=== PATIENT | female | born 2000 | race Caucasian/White ===

== ENCOUNTER 2024-09-08 11:07 | Outpatient (REF) | payer OTHER, SELFPAY ==
[2024-09-08 14:07] LABS: Influenza A PCR NEGATIVE (Negative); Influenza B PCR NEGATIVE (Negative); Resp Syncy Virus RNA Qual PCR NEGATIVE (Negative); SARS COV2 PCR INHOUSE NEGATIVE (Negative)
== END 2024-09-08 11:08 | disposition home or self-care (01) ==
LOC: HO.LNP 11:07
PROVIDERS: Visit Provider Physician Assistant
DX: R06.9 Unspecified abnormalities of breathing (principal)
CPT/HCPCS: 0241U

== ENCOUNTER 2024-09-08 11:07 | Outpatient (AMB) | payer OTHER, SELFPAY ==
--- NOTE | 2024-09-08 11:36 | AM.OFFWIN_ITS ---
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 Patient Tobacco Use Status: Never used Tobacco Allergies No Known Allergies Allergy (Verified 09/08/24 11:39) Do you need a note to return to daycare/school/sports/work: Yes HPI HPI Comments History of Present Illness Details The patient is a 24-year-old female presenting with a persistent cough and wheezing. Her symptoms began approximately 10 to 11 days ago and have been fluctuating in severity. She experiences both productive and dry cough and reports episodes of fever, with the highest temperature recorded at 99.9?F. The patient does not have sinus or ear pain, shortness of breath, or sputum reaching expectoration level. Wheezing is noted, and she has a history of asthma, although she currently does not have a rescue inhaler. Allergic rhinitis is managed with daily Zyrtec, and she used NyQuil the previous night. She denies any smoking or vaping. The patient was exposed to coworkers afflicted with similar respiratory complaints, noting a potential exposure to walking pneumonia at her workplace. 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 [facility] Social History Patient Tobacco Use Status: Never used Tobacco Review of Systems Const All systems reviewed & are unremarkable except as noted in HPI and below Physical Exam Vital Signs: Last Vital Signs Temp 98.9 F 09/08/24 11:38 Pulse 92 09/08/24 11:38 BP 110/72 09/08/24 11:38 Pulse Ox 98 09/08/24 11:38 Const General: cooperative, healthy appearing, comfortable and no acute distress Orientation/consciousness: patient oriented x3 Limitations: no limitations HEENT Head: Yes normal to inspection Ears: hearing grossly normal bilaterally, external ears normal and TM's normal bilaterally General nose exam: Normal external nose present, Normal nares present and No nasal discharge present Face and sinus: Yes normal facial exam and Yes sinuses nontender Mouth: Normal oral and palatal mucosa present and moist mucous membranes Throat: Yes tonsils normal, Yes uvula midline and Yes posterior oropharynx abnormal (Erythema) Eyes General: appearance normal, both eyes and all related structures Neck Neck: Yes normal visual inspection Resp Effort & Inspection: normal respiratory effort, able to speak in complete sentences, Actively coughing, no respiratory distress, not tachypneic, no tripod positioning and no use of accessory muscles Auscultation: clear to auscultation bilaterally Cardio Rate: regular rate Rhythm: regular rhythm Heart sounds: normal S1 and S2 Skin General skin exam: no rashes or lesions noted Neuro General: patient oriented x3 Extrem General: Yes normal to inspection and Yes no clubbing, cyanosis or edema Assessment & Plan Assessment & Plan (1) Atypical pneumonia: Code(s): J18.9 - Pneumonia, unspecified organism Plan: - For suspected Mycoplasma Pneumonia: Initiate Azithromycin Z-Brock with a dosing regimen of two tablets on the first day, followed by one tablet per day for the next four days. This is due to prolonged cough and potential exposure to respiratory illness. - For Asthma: Prescribe a rescue inhaler to be used in case of wheezing or ingrid rtness of breath. - Diagnostic Testing: Administered rapid tests for influenza, COVID-19, and RSV to rule out acute viral infections. - Work and Activity: Provide a work note for absence today and tomorrow to allow the antibiotic to take effect, reducing the risk of contagion at the workplace. Advise wearing a mask upon return to work on Friday. - Follow-up: Plan to communicate test results by the end of the day. Further medical follow-up may be necessary if symptoms do not improve with the current treatment plan. Patient was informed and verbally consented to the use of an ambient scribe for clinic note documentation during this visit Orders: Orders SARS-CoV2/FLU/RSV Today J06.9 - Acute upper respiratory infection, unspecified Medications: New azithromycin For 250 mg dose pack: take 500 mg today (day 1), then 250 mg for 4 days (days 2-5) PO 6 tabs 0RF albuterol sulfate 90 mcg/actuation (Ventolin HFA) 2 puffs inhalation Q4-6H PRN 8.5 grams 0RF shortness of breath or wheezing benzonatate 200 mg PO TID PRN 14 caps 0RF cough Coding Level of Care Code New Pt Level 3 (23366) Diagnoses Atypical pneumonia J18.9
[2024-09-08 11:38] VITALS: BP 110/72; PULSE 92; TEMP 37.2; O2SAT 98
== END 2024-09-08 12:34 | disposition home or self-care (01) ==
PROVIDERS: Visit Provider Physician Assistant
DX: J18.9 Pneumonia, unspecified organism (principal)

== ENCOUNTER 2024-10-15 16:26 | Outpatient (REF) | payer OTHER, SELFPAY ==
--- NOTE | ~2024-10-15 | US_ITS ---
EXAMINATION: US ABDOMEN LIMITED CLINICAL INFORMATION: Palpable mass LEFT flank area. COMPARISON: None available. TECHNIQUE: Targeted ultrasound images were obtained by the emg technician of the area of concern as indicated by the patient in the LEFT flank. Radiologist was not in attendance. Images were later provided for interpretation. FINDINGS: No discrete mass or fluid collection identified in the area of concern indicated by the patient in the LEFT flank. Limited visualization due to bowel gas. US/US abdomen limited IMPRESSION: No discrete mass or fluid collection identified in the area of concern indicated by the patient in the LEFT flank. Limited visualization due to bowel gas. Additional imaging with CT scan should be considered for further evaluation. Electronically signed by: Arleth De León MD 10/18/2024 08:35 AM DONOVAN
== END 2024-10-15 16:27 | disposition home or self-care (01) ==
LOC: HO.US 16:26
PROVIDERS: PCP Nurse Practitioner Family; Visit Provider Nurse Practitioner Family
DX: R22.2 Localized swelling, mass and lump, trunk (principal)
CPT/HCPCS: 76705

== ENCOUNTER 2024-11-24 08:48 | Emergency (ER) | payer OTHER, SELFPAY ==
--- NOTE | ~2024-11-24 | CT_ITS ---
EXAMINATION: CT ABDOMEN AND PELVIS WITHOUT CONTRAST CLINICAL INFORMATION: Right flank pain. COMPARISON: None available. TECHNIQUE: Multidetector volumetric imaging was performed from the superior aspect of the liver through the pubic symphysis. Sagittal and coronal reformatted images were obtained on the technologist's workstation. This CT examination was performed using dose optimization techniques as appropriate, variously including the following: *Automated exposure control *Adjustment of mA and/or kV according to patient size (this includes techniques or standardized protocols for targeted exams where dose is matched to indication/reason for exam; i.e. extremities or head) *Use of iterative reconstruction technique. DLP: 809 mGy centimeter. FINDINGS: Inadequate evaluation of the intra-abdominal organs and vascular structures due to lack of IV contrast. LUNG BASES: No acute airspace disease in the included lungs. LIVER, GALLBLADDER, AND BILIARY TREE: Liver measures 15 cm. No intrahepatic biliary ductal dilatation. No pericholecystic fluid collection or gallbladder wall thickening. Common bile duct measures 2 mm. PANCREAS: No peripancreatic fluid collections. No main pancreatic ductal dilatation. SPLEEN: 10 cm. ADRENAL GLANDS: No nodular lesions. KIDNEYS AND URETERS: Right kidney: Mild hydronephrosis. Mild perinephric edema pattern. 2.5 mm calculus at the right vesicoureteral junction. Left kidney: No hydronephrosis. No nephrolithiasis. BLADDER: 2.5 mm calcification at the right vesicoureteral junction. GASTROINTESTINAL TRACT: Appendix is normal. No intestinal obstruction pattern. Nonspecific mesenteric edema pattern. No pneumatosis intestinalis. No pneumoperitoneum. No ascites. . ABDOMINAL WALL: Small tiny fat-containing umbilical hernia. LYMPH NODES: Nonspecific prominent mesenteric and retroperitoneum lymph nodes. VASCULAR: No aneurysm, abdominal aorta. PELVIC VISCERA: Inadequate evaluation. Intrauterine T-shaped contraceptive device. OSSEOUS STRUCTURES: No acute fracture or listhesis in the axial skeleton. Bony pelvis and coxofemoral joints are intact. CT/CT abdomen pelvis wo IV con IMPRESSION: 2.5 mm obstructing calculus at the right vesicoureteral junction resulting in mild hydronephrosis, right kidney. Fleischner guidelines were followed. Electronically signed by: Favian Haji MD 11/24/2024 12:56 PM [facility] [place]
[2024-11-24 09:30] VITALS: BP 121/79; PULSE 74; RESP 18; TEMP 36.2; O2SAT 97; BMI 37.2
[2024-11-24 09:55] LABS: MANUAL DIFF FLAG NO
[2024-11-24 09:57] LABS: Appearance Urine Turbid; Color Urine Dark Yellow; Glucose Urine UA Negative (Negative); Leukocyte Esterase Urine Moderate (2+) (Negative); Nitrite Urine Negative (Negative); PH 5.5 (5.0-9.0); Specific Gravity - Urine >= 1.030 (1.005-1.025); UMIC TRIGGER UACC YES; Urine Blood Large (3+) (Negative); Urine Ketones Trace mg/dL (Negative); Urine Protein 30 (1+) mg/dL (Neg-Trace)
[2024-11-24 09:58] LABS: Urine Pregnancy NEGATIVE (NEGATIVE)
[2024-11-24 09:59] LABS: UPreg QC Valid YES
[2024-11-24 10:01] LABS: Basophils Absolute Auto 0.1 X10*3/uL (0.0-0.2); Basophils Percent Auto 0.7 % (0-2); Eosinophils Absolute Auto 0.1 X10*3/uL (0.0-0.4); Eosinophils Percent Auto 1.5 % (0-4); Hematocrit 43.1 % (37.0-47.0); Imm Gran Abs Auto 0.02 X10*3/uL (0.00-0.03); Imm Gran Pct Auto 0.3 % (0.0-0.4); Lymphocytes Absolute Auto 2.3 X10*3/uL (1.2-4.9); Lymphocytes Percent Auto 30.2 % (20-40); Mean Corpuscular HGB Conc 34.8 g/dl (31.0-35.0); Mean Corpuscular Hemoglobin 29.9 pg (27.0-33.0); Mean Corpuscular Volume 85.9 fL (80.0-98.0); Monocytes Absolute Auto 0.5 X10*3/uL (0.1-1.2); Monocytes Percent Auto 6.4 % (2-11); Neutrophils Absolute Auto 4.6 x10*3/uL (2.0-8.3); Neutrophils Percent Auto 60.9 % (45-73); Platelet Count 332 X10*3/uL (160-400); Red Blood Count 5.02 X10*6/uL (4.20-5.50); Red Cell Distribution Width 12.6 % (11.0-16.0); White Blood Count 7.6 X10*3/uL (4.8-10.8)
[2024-11-24 10:08] LABS: Bacteria Urine 3+ (None Seen); Hyaline Casts Urine 0-2 /LPF (0-2); RBC Urine >20 /HPF (0-2); UACC Culture Trigger YES
[2024-11-24 10:14] LABS: Albumin Level 4.6 g/dL (3.5-5.0); Alkaline Phosphatase 65 U/L (39-117); Anion Gap 10 (12-20); Aspartate Amino Transferase 32 U/L (5-31); Bilirubin Direct 0.3 mg/dL (0.0-0.5); Blood Urea Nitrogen 9 mg/dL (9-16); Calcium 9.1 mg/dL (8.4-10.2); Carbon Dioxide 26 mmol/L (22-29); Chloride 107 mmol/L (96-108); Creatinine Clr Calc Pharmacy 130.1; Estimated Glomerular Filt Rate > 60; Glucose Random 102 mg/dL (60-115); Lipase 33 U/L (8-78); Potassium 4.1 mmol/L (3.3-5.1); Sodium 139 mmol/L (135-145); Total Protein 7.8 g/dL (6.5-8.0)
[2024-11-24 10:25] LABS: Alanine Aminotransferase 31 U/L (0-31)
--- OUTSIDE RECORDS SUMMARY | 2024-11-24 10:32 | XMS_ITS | Continuity of Care Document ---
Author Organization [facility] Address [address] [place] [address]- Care Team Providers Care Manager Of Learning Name Role Phone Elio RUBIN, Christel Subramanian Primary Care Physician Encounter [facility] Date(s): 11/16/24 - 11/23/24 [facility] [address] [place] [address]- Encounter Diagnosis Abdominal bloating(Discharge Diagnosis) - 11/16/24 Alternating constipation and diarrhea(Discharge Diagnosis) - 11/16/24 Mass of soft tissue of abdomen(Discharge Diagnosis) - 11/16/24 Attending Physician: Christel Ballard NP Encounter Type: Office Visit Allergies, Adverse Reactions, Alerts No Known Allergies Immunizations Given and Recorded Vaccine Date Status Refusal Reason influenza virus vaccine, inactivated 08/28/24 Delano rded influenza virus vaccine, inactivated 08/02/23 Delano rded SARS-CoV-2(COVID-19)mRNA-LNP vac([id number]) 08/28/24 Recorded SARS-CoV-2(COVID-19)mRNA-LNP vac([id number]) 08/02/23 Recorded Medications Fluoxetine = 40 mg, By Mouth, 0 Refills, Maintenance, 03/11/24 10:37:00 AM EDT, Partial fill upon patient request if the prescription is for a schedule II opioid drug. Start Date: 03/11/24 Status: Ordered Repeat number: 1 hydrOXYzine hydrochloride 10 mg oral tablet 1 tablet = 10 mg, By Mouth, 3 times a day, PRN for anxiety, # 60 tablet, 0 Refills, Maintenance, 10/01/24 4:41:00 PM EST, Tablet, Partial fill upon patient request if the prescription is for a schedule II opioid drug. Start Date: 10/01/24 Status: Ordered Quantity: 60.0 Unit: tablet Repeat number: 1 levonorgestrel 52 mg intrauterine device See Instructions, For delivery to [facility] (IVF suite in [place]) on 04/06 for insertion at 1:30pm, # 1 each, 0 Refills, Maintenance, 03/18/24 11:53:00 PM EDT, [facility], Partial fill upon patient request if the prescription is for a schedule II opioid drug. Start Date: 03/18/24 Status: Ordered Quantity: 1.0 Unit: each Repeat number: 1 propranolol 20 mg oral tablet 20 mg, 1, tablet, By Mouth, 2 times a day, # 60 tablet, Refills 5, Maintenance, 03/11/24 10:38:00 AMEDT, Partial fill upon patient request if the prescription is for a schedule II opioid drug. Start Date: 03/11/24 Status: Ordered Quantity: 60.0 Unit: tablet Repeat number: 1 Readi-Cat 2 Smoothie Creamy Vanilla 2% oral suspension See Instructions, use as directed by radiology, # 2 each, 0 Refills, Maintenance, 11/21/24 1:26:00 PMEST, [facility], Partial fill upon patient request if the prescription is for a schedule II opioid drug., use as directed by radiology, 159.5, cm, 11/16/24 12:51:00 EST, Height Start Date: 11/21/24 Status: Ordered Quantity: 2.0 Unit: each Repeat number: 1 ZyrTEC 10 mg oral tablet 1 tablet = 10 mg, By Mouth, Daily, # 30 tablet, 0 Refills, Maintenance, 03/11/24 10:35:00 AM EDT, Tablet, Partial fill upon patient request if the prescription is for a schedule II opioid drug. Start Date: 03/11/24 Status: Ordered Quantity: 30.0 Unit: tablet Repeat number: 1 Problem List Condition Confirmation Course Effective Dates Status Health St atus Informant Amenorrhea Confirmed Active Generalized anxiety disorder Confirmed Active IUD (intrauterine device) in place Confirmed Active Migraines Confirmed Active Pituitary adenoma Confirmed Active Major depressive disorder, recurrent, in partial remission Confirmed Active Seasonal allergies Confirmed Active Severe obesity (BMI 35.0-39.9) with comorbidity Confirmed Active Diagnosis Diagnosis Type Effective Dates Health Status Clinical Service Informant Abdominal bloating Discharge Diagnosis 11/16/24 Alternating constipation and diarrhea Discharge Diagnosis 11/16/24 Mass of soft tissue of abdomen Discharge Diagnosis 11/16/24 Vital Signs Most recent to oldest [Reference Range]: 1 Height 159.5 cm (11/16/24 12:51 PM) Weight 99.9 kg (11/16/24 12:51 PM) Oxygen Saturation [94-100 %] 100 % (11/16/24 12:51 PM) Pulse Rate [55-90 bpm] 75 bpm (11/16/24 12:51 PM) Body Mass Index [18.5-24.99 kg/m2] 39.27 kg/m2 *>HHI* (11/16/24 12:51 PM) Blood Pressure [90-138/55-84 mm Hg] 101/ 75mm Hg (11/16/24 12:51 PM) Mode of Delivery (Oxygen) Room air (11/16/24 12:51 PM) Blood pressure sites Arm, right (11/16/24 12:51 PM) Weight Obtained Via Standing scale (11/16/24 12:51 PM) Social History Social History Type Response Smoking Status Never (less than 100 in lifetime) entered on: 10/01/24 Sex Female Sex Representation Female (finding) Note * Matthieu Kim: PERFORM Event Display: Patient Education/Instruction Authored Date: [id number] Ambulatory Adult Visit Summary [address] [address] Name: ASHLEY SRINIVASAN : 2000?? Visit: 11/16/2024 12:50?? Ambulatory Visit Instructions ?? Your Care Team Primary Care Provider Christel Ballard NP? This Visit Provider Christel Ballard NP Your Diagnosis Abdominal bloating Alternating constipation and diarrhea Mass of soft tissue of abdomen Vitals Signs Pulse Rate: 75 bpm Height: 159.5 cm Systolic Blood Pressure: 101 mm Hg Weight: 99.9 kg Diastolic Blood Pressure: 75 mm Hg Body Mass Index:??39.27 kg/m2??Critical Oxygen Saturation: 100 % Body surface area: 2.1 What to do next Scheduled Follow-Up Appointments Friday 8:20 AM EST ?? With: Elio RUBIN, Christel Marilynn Where: [address] [address]- Status: Pending Future Orders CT Abd/Pelvis W/ IV + Oral Contrast, Routine, Reason for Exam: Other:, Abdominal pain, acute, nonlocalized, IV and Oral Contrast, Once, *Est. 11/16/24 FSH - Routine, Once, 03/11/24 11:06:00 EDT, Order for Today, [facility], Blood?? Prolactin Level - Routine, Once, 03/11/24 11:06:00 EDT, Order for Today, [facility], Blood?? TSH Rfx on Abnormal to Free T4 - Routine, Once, 03/11/24 11:06:00 EDT, Order for Today, [facility], Blood?? Testosterone by Extraction (Testosterone, Total (female)) - Routine, Once, 03/11/24 11:07:00 EDT, Future Order, [facility], Blood?? Estradiol (Female >=16yrs) - Routine, Once, 03/11/24 11:08:00 EDT, Order for Today, [facility], Blood?? CBC - Routine, Once, 11/16/24 13:09:00 EST, Order for Today, [facility], Blood?? Comprehensive Metabolic Panel - Routine, Once, 11/16/24 13:09:00 EST, Order for Today, [facility], Blood?? Tissue Transglutaminase Ab IgA - Routine, Once, 11/16/24 13:09:00 EST, Future Order, [facility], Blood?? Medications The list below reflects the information in our records and provided by you today along with any changes made during this visit. Please continue your medications until treatment is completed or stopped by your provider. If this is different from the information you have or there are other questions,please contact the prescribing provider. What How Much When Instructions Unchanged Cetirizine (ZyrTEC 10 mg oral tablet) 1 tab(s) Oral Daily Unchanged Fluoxetine 40 Milligram Oral Unchanged HydrOXYzine (hydrOXYzine hydrochloride 10 mg oral tablet) 1 tab(s) Oral 3 times a day as needed for for anxiety Unchanged Levonorgestrel (levonorgestrel 52 mg intrauterine device) See instructions For delivery to [facility] (IVF suite in [place]) on for insertion at 1:30pm ?? Unchanged Propranolol (propranolol 20 mg oral tablet) 1 tab(s) Oral Twice a day Test Performed Below is a partial list of the tests performed during your Visit. You may have had other tests and procedures not included in this list. Please discuss all test results with your provider. CBC?-- Results Pending -- Comprehensive Metabolic Panel?-- Results Pending -- Tissue Transglutaminase Ab IgA?-- Results Pending -- US Soft Tissue Abdomen?-- Results Pending -- Medications and Immunizations Administered Medications Given During Visit No medications given during this visit.?? Allergies (NKA means No Known Allergies) NKA Common Emergency Awareness Tips IS IT A STROKE? Act FAST and Check for these signs: FACE Does the face look uneven? ARM Does one arm drift down? SPEECH Does their speech sound strange? TIME Call at any sign of stroke ?? Heart Attack Signs Chest discomfort: Most heart attacks involve discomfort in the center of the chest and lasts more than a few minutes, or goes away and comes back. It can feel like uncomfortable pressure, squeezing, fullness or pain. Discomfort in upper body: Symptoms can include pain or discomfort in one or both arms, back, neck, jaw or stomach. Shortness of breath: With or without discomfort. Other signs: Breaking out in a cold sweat, nausea, or lightheaded. Remember, MINUTES DO MATTER. If you experience any of these heart attack warning signs, call to get immediate medical attention! ?? Smoking can increase your chances of developing chronic health problems and can cause harmful effects to other family members in your house. If you smoke, you are strongly encouraged to quit. Please call [employer] [facility] at [phone] or 2-008-034[employer] ([phone]) or log in to [email or web address] for referrals to smoking cessation programs. ?? The National Suicide Prevention Hotline is available 12/05 if you or someone you know needs to find a reason to keep living. By calling 3-582-532-[employer] (0525) you'll be connected to a skilled, trained counselor at a crisis center in your area. [facility] You can view and manage your care through the patient portal or by using a health care shanel of your choosing. [employer] is a website that allows you to securely view your medical information including your hospital discharge summary, office visit summaries, medications and follow-up visits. You can also request appointments, renew medications, and request access to your medical information using a health care shanel of your choosing, or just ask a question. You can enroll at [email or web address] or register during your next office visit. [facility], in keeping with [facility] guidance, no longer requires face masks for staff, patientsor visitors in most situations. Similiar to time spent indoors at other locations, there is the chance that you were exposed to repiratory viruses during your time with us (such as flu or COVID-19). If you develop symptoms concerning for a viral respiratory infection, please seek testing (and treatment if indicated) from your medical provider or home test kit. ?? Disclaimer: The information provided is of a general nature and is intended to be used in conjunction with the recommendations and advice of your health care practitioner. Every effort has been made to ensure that the information provided is accurate and complete at the time it is provided to you however, as your needs change, or, as new information becomes available, different or additional instructions may be required. ?? If you have questions, please consult with your primary care provider or pharmacist, as appropriate. This information is not intended to serve as substitution for assessment and evaluation by a qualified health care provider. If you do not have a primary care provider, you may find a [facility] provider by calling [facility] at [phone]. Patient Care team information Care Team Personnel Name: Elio RUBIN, Christel Subramanian Position: [facility] PCO Associate Professional Member Role: PCP Address: [address] [place] [address] Telecom: Care Team Related Persons Name: CAL MATTSON Insurance Providers Guarantor name: ASHLEY MATTSON Health Plan Information #: 1 Payer: [employer] PPO Member Number: [id number] Policy Number: NA Group Number: [id number] Health Plan Information #: 2 Payer: [employer] PPO Member Number: [id number] Policy Number: NA Group Number: [id number]
--- OUTSIDE RECORDS SUMMARY | 2024-11-24 10:32 | XMS_ITS | Continuity of Care Document ---
Author Organization [facility] Address [address] [facility] [place] [address]- Care Team Providers Care Block Breaker Name Role Phone Elio RUBIN, Christel Subramanian Primary Care Physician Encounter 10/05/24 - 11/13/24 [facility] [address], [address] [place] [address]- Attending Physician: Elio RUBIN, Christel Subramanian Admitting Physician: Christel Ballard NP Referring Physician: Christel Ballard NP Encounter Type: Pre-Outpt Allergies, Adverse Reactions, Alerts No Known Allergies Immunizations Given and Recorded Vaccine Date Status Refusal Reason influenza virus vaccine, inactivated 08/28/24 Delano rded influenza virus vaccine, inactivated 08/02/23 Delano rded SARS-CoV-2(COVID-19)mRNA-LNP vac([id number]) 08/28/24 Recorded SARS-CoV-2(COVID-19)mRNA-LNP vac([id number]) 08/02/23 Recorded Medications Fluoxetine = 40 mg, [...] For delivery to [facility] (IVF suite in [place]) on 04/06 for insertion at 1:30pm, # 1 each, 0 Refills, Maintenance, 03/18/24 11:53:00 PM EDT, [facility], Partial fill upon patient request if [...] Quantity: 60.0 Unit: tablet Repeat number: 1 ZyrTEC 10 mg oral tablet 1 tablet = 10 mg, By Mouth, Daily, # 30 tablet, 0 Refills, Maintenance, 03/11/24 10:35:00 AM EDT, Tablet, Partial fill upon patient request if the prescription is for a schedule II opioid drug. Start Date: 03/11/24 Status: Ordered Quantity: 30.0 Unit: tablet Repeat number: 1 Problem List Condition Confirmation Course Effective Dates Status Health atus Informant Amenorrhea Confirmed Active Generalized anxiety disorder Confirmed Active IUD (intrauterine device) in place Confirmed Active Migraines Confirmed Active Obese class II Confirmed Active Pituitary adenoma Confirmed Active Major depressive disorder, recurrent, in partial remission Confirmed Active Seasonal allergies Confirmed Active Social History Social History Type Response Smoking Status Never (less than 100 in lifetime) entered on: 10/01/24 Sex Female Sex Representation Female (finding) Patient Care team information Care Team Personnel Name: Elio RUBIN, Christel Subramanian Position: S PCO Associate Professional Member Role: PCP Address: [address] [place] [address], [place] [address]- Telecom: Care Team Related Persons Name: CAL MATTSON Insurance Providers Guarantor name: ASHLEY SRINIVASAN Health Plan Information #: 1 Payer: [employer] PPO Member Number: [id number] Policy Number: NA Group Number: [id number] Health Plan Information #: 2 Payer: [employer] PPO Member Number: [id number] Policy Number: NA Group Number: [id number]
--- OUTSIDE RECORDS SUMMARY | 2024-11-24 10:32 | XMS_ITS | Continuity of Care Document ---
Author Organization [facility] Address [address] [place] [address]- Care Team Providers Care Castables Worker Name Role Phone Elio RUBIN, Christel Subramanian Primary Care Physician Encounter [facility] R [id number] Date(s): 09/23/24 - 10/27/24 [facility] [address] [place] [address]- Attending Physician: Zara Phillips NP Encounter Type: Pre Office Visit Allergies, Adverse Reactions, Alerts No Known Allergies Immunizations Given and Recorded Vaccine Date Status Refusal Reason influenza virus vaccine, inactivated 08/28/24 Delano rded influenza virus vaccine, inactivated 08/02/23 Delano rded SARS-CoV-2(COVID-19)mRNA-LNP vac([id number]) 08/28/24 Recorded SARS-CoV-2(COVID-19)mRNA-LNP vac([id number]) 08/02/23 Recorded Medications Fluoxetine = 40 mg, [...] For delivery to [facility] (IVF suite in [place]) on 04/06 for insertion at 1:30pm, # 1 each, 0 Refills, Maintenance, 03/18/24 11:53:00 PM EDT, [facility], Partial fill upon patient [...] Personnel Name: Elio RUBIN, Christel Subramanian Position: [facility] PCO Associate Professional Member Role: PCP Address: [address] [place] [address]- Telecom: Care Team Related Persons Name: CAL MATTSON Insurance Providers Guarantor name: ASHLEY SRINIVASAN Health Plan Information #: 1 Payer: [employer] PPO Member Number: [id number] Policy Number: NA Group Number: [id number] Health Plan Information #: 2 Payer: [employer]IT BBA PPO Member Number: [id number] Policy Number: NA Group Number: [id number]
--- OUTSIDE RECORDS SUMMARY | 2024-11-24 10:32 | XMS_ITS | Continuity of Care Document ---
Author Organization [facility] Address [address] [place] [address]- Care Team Providers Care Bacteriologist Medical Name Role Phone Elio RUBIN, Christel Subramanian Primary Care Physician Encounter [facility] Date(s): 10/06/24 - 11/05/24 [facility] [address] [place] [address]- Encounter Type: Triage Allergies, Adverse Reactions, Alerts No Known Allergies Immunizations Given and Recorded Vaccine Date Status Refusal Reason influenza virus vaccine, inactivated 08/28/24 Delano rded influenza virus vaccine, inactivated 08/02/23 Delano rded SARS-CoV-2(COVID-19)mRNA-LNP vac([id number]) 08/28/24 Recorded SARS-CoV-2(COVID-19)mRNA-LNP vac([id number]) 08/02/23 Recorded Medications Fluoxetine = 40 mg, [...] For delivery to [facility] (IVF suite in [place]) on 04/06 for insertion at 1:30pm, # 1 each, 0 Refills, Maintenance, 03/18/24 11:53:00 PM EDT, [facility], Partial fill upon patient request [...] PCO Associate Professional Member Role: PCP Address: [address] [place] [address]- Telecom: Care Team Related Persons Name: CAL MATTSON Insurance Providers Guarantor name: ASHLEY RSINIVASAN Health Plan Information #: 1 Payer: [employer] PPO Member Number: NA Policy Number: NA Group Number: NA
--- NOTE | 2024-11-24 11:35 | ED_ITS ---
HPI - Abdominal Pain General Chief Complaint: Abdominal Pain Stated Complaint: pain rad from abd to back Time Seen by Provider: 11/24/24 12:34 Source: patient Limitations: no limitations History of Present Illness ED Provider: Connie Blanchard PA-C HPI narrative: 24-year-old female presents with the abdominal pain x1 day. Pain originated in right lower flank, with radiation to the right lower abdomen. Pain fluctuates in intensity, becoming severe at times. Associated nausea, but no vomiting. Denies dysuria, hematuria, fever or history of kidney stones. Related Data Home Medications ?Medication ?Instructions ?Recorded ?Confirmed fluoxetine 40 mg capsule 40 mg PO DAILY 09/08/24 propranolol 20 mg tablet 20 mg PO BID 09/08/24 Previous Rx's ?Medication ?Instructions ?Recorded albuterol sulfate 90 mcg/actuation 2 puff inhalation Q4-6H PRN 09/08/24 aerosol inhaler (Ventolin HFA) shortness of breath or wheezing #8.5 grams azithromycin 250 mg tablet See Rx Instructions PO .COMPLEX #6 09/08/24 tabs benzonatate 200 mg capsule 200 mg PO TID PRN cough #14 caps 09/08/24 cephalexin 500 mg capsule 500 mg PO BID #13 caps 11/24/24 ketorolac 10 mg tablet 10 mg PO Q6H PRN pain #20 tabs 11/24/24 ondansetron HCl 4 mg tablet 4 mg PO Q8H PRN nausea and 11/24/24 vomiting #10 tabs tamsulosin 0.4 mg capsule (Flomax) 0.4 mg PO DAILY #6 caps 11/24/24 Allergies Allergy/AdvReac Type Severity Reaction Status Date / Time No Known Allergies Allergy Verified 11/24/24 09:32 Review of Systems Review of Systems Yes all other systems are reviewed and are negative Constitutional: Denies fatigue and Denies fever(s) Cardiovascular: Denies chest pain and Denies dyspnea Respiratory: Denies cough and Denies dyspnea Gastrointestinal: Reports abdominal pain, Reports nausea and Denies vomiting Genitourinary: Denies hematuria, Denies dysuria and Reports flank pain Endocrine: Denies fatigue PMF Past Medical History Attestation statement: The following information was validated with the patient. Social History Social History Patient Tobacco Use Status: Never used Tobacco Advance Directives: No Advance Directives Information Provided: Yes Do you have a plan to hurt others: No Plan Physical Exam ED Vital Signs: Vital Signs - 24 hr 11/24/24 09:30 11/24/24 13:53 Temperature 97.2 F 99.3 F Pulse Rate 74 75 Respiratory Rate 18 16 Blood Pressure 121/79 107/66 Pulse Oximetry 97 99 Oxygen Delivery Method Room Air Room Air BMI result Body Mass Index 37.2 Const Other: Alert Orientation/consciousness: patient oriented x3 Resp Effort & Inspection: normal respiratory effort Cardio Other: Normal peripheral perfusion GI Other: Abdomen is soft, nondistended nontender no guarding Back/Spine/Pelvis Other: No CVA tenderness Skin Other: Warm dry no rash Neuro General: patient oriented x3, gait normal, no focal motor deficits and CN's II- XI intact bilaterally Psych Other: Cooperative Course Course Course Narrative: This is a Rapid Medical Examination (RME) performed by Phong Parker PA-C in triage. Full HPI, ROS, assessment and treatment plan per primary provider in the Main ED. 24 yo female here for eval of R flank pain radiating to right lower abd x24 hours. asscoc nausea w/o vomiting. denies urinary sx. Plan: labs, UA, +/- imaging Medical Decision Making Medical Decision Making MDM Narrative: 24-year-old female presents with the abdominal pain x1 day. Pain originated in right lower flank, with radiation to the right lower abdomen. Pain fluctuates in intensity, becoming severe at times. Associated nausea, but no vomiting. Denies dysuria, hematuria, fever or history of kidney stones. No chronic issues History: Per patient I have considered the following differential diagnoses: Renal colic, biliary colic, cholecystitis, appendicitis, torsion, UTI, pyelonephritis Plan: Given right-sided symptoms I have considered the above following diagnoses. However, her symptoms are most consistent with renal colic. Screening labs including urinalysis were obtained from triage. Doubtful to be pyelonephritis, she has no CVA tenderness, she is also afebrile. Thought about torsion, however the onset of her discomfort was within the flank, has not been focal to the abdomen and pelvic region. CT scan ordered from triage. We will be giving fluids Zofran Toradol and Flomax. I have personally reviewed the following tests: Labs: No leukocytosis, not anemic, no electrolyte abnormality, urine not infected, passing hematuria and some white cells CT/CT abdomen pelvis wo IV con IMPRESSION: 2.5 mm obstructing calculus at the right vesicoureteral junction resulting in mild hydronephrosis, right kidney. Fleischner guidelines were followed. Electronically signed by: Favian Haji MD 11/24/2024 12:56 PM [facility] Lab Data 11/24/24 09:48 11/24/24 09:48 Labs: Lab Results 11/24/24 Range/Units 09:48 WBC 7.6 (4.8-10.8) X10*3/uL RBC 5.02 (4.20-5.50) X10*6/uL Hgb 15.0 (12.0-16.0) g/dl Hct 43.1 (37.0-47.0) % MCV 85.9 (80.0-98.0) fL MCH 29.9 (27.0-33.0) pg MCHC 34.8 (31.0-35.0) g/dl RDW 12.6 (11.0-16.0) % Plt Count 332 (160-400) X10*3/uL MPV 9.0 L (9.4-12.3) fL Immature Gran % (Auto) 0.3 (0.0-0.4) % Neut % (Auto) 60.9 (45-73) % Lymph % (Auto) 30.2 (20-40) % [place] % (Auto) 6.4 (2-11) % Eos % (Auto) 1.5 (0-4) % Baso % (Auto) 0.7 (0-2) % Lymph # (Auto) 2.3 (1.2-4.9) X10*3/uL [place] # (Auto) 0.5 (0.1-1.2) X10*3/uL Eos # (Auto) 0.1 (0.0-0.4) X10*3/uL Baso # (Auto) 0.1 (0.0-0.2) X10*3/uL Abs Immat Gran (auto) 0.02 (0.00-0.03) X10*3/uL Absolute Neuts (auto) 4.6 (2.0-8.3) x10*3/uL Absolute Nucleated RBC 0.000 (0.0-0.012) X10*3/uL Nucleated RBC % (auto) 0.0 (0.0-0.2) /100WBC Sodium 139 (135-145) mmol/L Potassium 4.1 (3.3-5.1) mmol/L Chloride 107 (96-108) mmol/L Carbon Dioxide 26 (22-29) mmol/L Anion Gap 10 L (12-20) BUN 9 (9-16) mg/dL Creatinine 0.76 (0.5-1.4) mg/dL Estim Creat Clear Calc 130.1 Estimated GFR > 60 Random Glucose 102 (60-115) mg/dL Calcium 9.1 (8.4-10.2) mg/dL Total Bilirubin 1.0 (0.0-1.0) mg/dL Direct Bilirubin 0.3 (0.0-0.5) mg/dL AST 32 H (5-31) U/L ALT 31 (0-31) U/L Alkaline Phosphatase 65 (39-117) U/L Total Protein 7.8 (6.5-8.0) g/dL Albumin 4.6 (3.5-5.0) g/dL Lipase 33 (8-78) U/L Urine Color Dark Yellow Urine Appearance Turbid Urine pH 5.5 (5.0-9.0) Ur Specific [place] >= 1.030 H (1.005-1.025) Urine Protein 30 (1+) H (Neg-Trace) mg/dL Urine Glucose (UA) Negative (Negative) mg/dL Urine Ketones Trace (Negative) mg/dL Urine Blood Large (3+) H (Negative) Urine Nitrite Negative (Negative) Ur Leukocyte Esterase Moderate (2+) H (Negative) Urine RBC >20 H (0-2) /HPF Urine WBC 11-20 (0-5) /HPF Ur Squamous Epith Cells 3-5 (0-2) /HPF Urine Bacteria 3+ (None Seen) Hyaline Casts 0-2 (0-2) /LPF Urine Test NEGATIVE (NEGATIVE) Medications Administered Discontinued Medications Generic Name Dose Route Start Last Admin Trade Name Freq PRN Reason Stop Dose Admin Sodium Chloride 500 mls @ 500 mls/hr 11/24/24 13:00 11/24/24 13:34 Ns IV 11/24/24 13:59 500 mls/hr .Q1H ONE Administration Ketorolac Tromethamine 15 mg 11/24/24 13:00 11/24/24 13:31 Ketorolac Tromethamine 15 Mg/Ml Vial IVPUSH 11/24/24 13:01 15 mg ONCE ONE Administration Ondansetron HCl 4 mg 11/24/24 13:00 11/24/24 13:31 Ondansetron Hcl 4 Mg/2 Ml Vial IVPUSH 11/24/24 13:01 4 mg ONCE ONE Administration Tamsulosin HCl 0.4 mg 11/24/24 13:03 11/24/24 13:31 Tamsulosin Hcl 0.4 Mg Capsule PO 11/24/24 13:04 0.4 mg ONCE ONE Administration Discharge Plan Discharge Clinical Impression: Calculus of distal right ureter Patient Disposition: Home, Self-Care Instructions: Renal Colic (ED) Additional Instructions: You are passing a 2.5 mm kidney stone, it is at the juncture were your ureter meet your bladder. It will likely pass today. Uses Zofran as needed for nausea. Use the ketorolac as needed for pain. It is questionable that your urine maybe infected, we are placing you on antibiotics. Take the cephalexin as directed. Take the Flomax as directed this will help induce urine flow. Follow up with your primary care provider as needed. Prescriptions: New cephalexin 500 mg capsule 500 mg PO BID Qty: 13 0RF ondansetron HCl 4 mg tablet 4 mg PO Q8H PRN (Reason: nausea and vomiting) Qty: 10 0RF tamsulosin [Flomax] 0.4 mg capsule 0.4 mg PO DAILY Qty: 6 0RF ketorolac 10 mg tablet 10 mg PO Q6H PRN (Reason: pain) Qty: 20 0RF Rx Instructions: maximum total duration of 5 days from all oral, intranasal, or parenteral formulations. The patient received an IV dose of Toradol here in the emergency department. No Action fluoxetine 40 mg capsule 40 mg PO DAILY propranolol 20 mg tablet 20 mg PO BID azithromycin 250 mg tablet See Rx Instructions PO .COMPLEX Qty: 6 0RF Rx Instructions: For 250 mg dose pack: take 500 mg today (day 1), then 250 mg for 4 days (days 2-5) PO benzonatate 200 mg capsule 200 mg PO TID PRN (Reason: cough) Qty: 14 0RF albuterol sulfate [Ventolin HFA] 90 mcg/actuation HFA aerosol inhaler 2 puff inhalation Q4-6H PRN (Reason: shortness of breath or wheezing) Qty: 8.5 0RF Stand Alone Forms: Work/School Release Print Language: Kazakh
[2024-11-24] MEDS: Tamsulosin HCL 0.4 MG CAPSULE PO (13:31)
[2024-11-24] MEDS: Ketorolac Tromethamine 15 MG/ML VIAL IVPUSH (13:31)
[2024-11-24] MEDS: ondansetron HCL 4 MG/2 ML VIAL IVPUSH (13:31)
[2024-11-24] MEDS: 0.9 % Sodium Chloride 500 ML IV (13:34)
[2024-11-24 13:53] VITALS: BP 107/66; PULSE 75; RESP 16; TEMP 37.4; O2SAT 99
[2024-11-24] MEDS: cephALEXin 500 MG CAPSULE PO (14:30)
[2024-11-24 14:35] VITALS: BP 107/66; PULSE 75; RESP 16; TEMP 37.4; O2SAT 99
== END 2024-11-24 14:37 | disposition home or self-care (01) ==
PROVIDERS: Emergency Provider Emergency Medicine; PCP Nurse Practitioner Family
DX: N21.0 Calculus in bladder (principal); N13.1 Hydronephrosis with ureteral stricture, not elsewhere classified; R10.9 Unspecified abdominal pain; R10.30 Lower abdominal pain, unspecified; R11.0 Nausea
CPT/HCPCS: 36415; 74176; 80048; 80076; 81001; 81025; 83690; 85025; 87086; 96361; 96374; 96375; 99284; 99285; J1885; J2405

== ENCOUNTER → 2024-11-24 11:35 | Outpatient (BNV) | payer OTHER, SELFPAY | PROVIDERS: Emergency Provider Emergency Medicine; PCP Nurse Practitioner Family; Visit Provider Radiology Diagnostic Radiology | DX: N20.1 Calculus of ureter (principal) | CPT/HCPCS: 74176 ==

== ENCOUNTER 2025-01-12 13:29 | Day surgery (SDC) | payer OTHER, SELFPAY ==
--- OUTSIDE RECORDS SUMMARY | 2024-12-31 10:40 | XMS_ITS | Continuity of Care Document ---
Author Organization [facility] Address [address] [place] [address]- Care Team Providers Care Inspector Outside Production Name Role Phone Elio RUBIN, Christel Subramanian Primary Care Physician Encounter [facility] [place] Date(s): 11/26/24 - 12/26/24 [facility] [address] [place] [address]- Encounter Type: Triage Allergies, Adverse Reactions, Alerts No Known Allergies Immunizations Given and Recorded Vaccine Date Status Refusal Reason influenza virus vaccine, inactivated 08/28/24 Delano rded influenza virus vaccine, inactivated 08/02/23 [place] rded SARS-CoV-2(COVID-19)mRNA-LNP vac([id number]) 08/28/24 Recorded SARS-CoV-2(COVID-19)mRNA-LNP vac([id number]) 08/02/23 Recorded Medications betamethasone topical dipropionate 0.05% cream 1 application, Topically, 2 times a day, for 7 days, apply thin amount to affected area, # 50 Gm, 0Refills, Acute 12/31/24 6:36:00 PM EDT, 12/24/24 6:36:00 PM EST, Cream, [id number], Partial fill upon patient request if the prescription is for a schedule II opioid drug., 1 application Topically 2 times a day,x7 days,Instr:apply thin amount to affected area, 159.5, cm, 12/24/24 18:21:00 EST,Height Start Date: 12/24/24 Stop Date: 12/31/24 Status: Ordered Quantity: 50.0 Unit: g Repeat number: 1 Indication: Rash and other nonspecific skin eruption Fluoxetine = 40 mg, By Mouth, 0 [...] For delivery to [facility] (IVF suite in [place]) on 04/06 for insertion at 1:30pm, # 1 each, 0 Refills, Maintenance, 03/18/24 11:53:00 PM EDT, [facility], Partial fill upon patient request if [...] List Condition Confirmation Course Effective Dates Status H ealth Status Informant Amenorrhea Confirmed Active Elevated anti-tissue transglutaminase (tTG) IgA level Confirmed Active Generalized anxiety disorder Confirmed Active IUD (intrauterine device) in place Confirmed Active Migraines Confirmed Active Pituitary adenoma Confirmed Active Major depressive disorder, recurrent, in partial remission Confirmed Active Seasonal allergies Confirmed Active Severe obesity (BMI 35.0-39.9) with comorbidity Confirmed Active Social History Social History Type Response Smoking Status Never (less than 100 in lifetime) entered on: 10/01/24 Sex Female Sex Representation Female (finding) Patient Care team information Care Team Personnel Name: Elio RUBIN, Christel Subramanian Position: S PCO Associate Professional Member Role: PCP Address: [address] [place] [address] Telecom: Care Team Related Persons Name: CAL MATTSON Insurance Providers Guarantor name: ASHLEY MATTSON Health Plan Information #: 1 Payer: BLUE BENEFIT BBA PPO Member Number: NA Policy Number: NA Group Number: NA
--- OUTSIDE RECORDS SUMMARY | 2024-12-31 10:40 | XMS_ITS | Continuity of Care Document ---
Author Organization [facility] Address [address] [place] [address]- Care Team Providers Care Picture Engraver Name Role Phone Elio RUBIN, Christel Subramanian Primary Care Physician [place] [facility] [place] 12/30/24 [facility] [address] [place] [address]- Encounter Type: Triage Allergies, Adverse Reactions, Alerts No Known Allergies Immunizations Given and Recorded Vaccine Date Status Refusal Reason influenza virus vaccine, inactivated 08/28/24 Delano rded influenza virus vaccine, inactivated 08/02/23 Delano rded SARS-CoV-2(COVID-19)mRNA-LNP vac([id number]) 08/28/24 Recorded SARS-CoV-2(COVID-19)mRNA-LNP vac([id number]) 08/02/23 Recorded Medications betamethasone topical dipropionate 0.05% cream 1 application, Topically, 2 times a day, for 7 days, apply thin amount to affected area, # 50 Gm, 0Refills, Acute 12/31/24 6:36:00 PM EDT, 12/24/24 6:36:00 PM EST, Cream, [id number], Partial fill upon patient request if the [...] For delivery to [facility] (IVF suite in [place]) on 04/06 for insertion at 1:30pm, # 1 each, 0 Refills, Maintenance, 03/18/24 11:53:00 PM EDT, [facility], Partial fill upon patient request if [...] PCO Associate Professional Member Role: PCP Address: [address] [place] [address] Telecom: Care Team Related Persons Name: CAL MATTSON Insurance Providers Guarantor name: ASHLEY MATTSON Health Plan Information #: 1 Payer: BLUE BENEFIT BBA PPO Member Number: NA Policy Number: NA Group Number: NA
--- OUTSIDE RECORDS SUMMARY | 2024-12-31 10:40 | XMS_ITS | Continuity of Care Document ---
Author Organization [facility] Address [address] [place] [address]- Care Team Providers Care Electrician Powerhouse Name Role Phone Elio RUBIN, Christel Subramanian Primary Care Physician Encounter [facility] [place] Date(s): 12/13/24 - 12/20/24 [facility] [address] [place] [address]- Encounter Diagnosis Right kidney mass(Discharge Diagnosis) - 12/13/24 Pituitary adenoma(Discharge Diagnosis) - 12/13/24 Severe obesity (BMI 35.0-39.9) with comorbidity(Discharge Diagnosis) - 12/13/24 Elevated anti-tissue transglutaminase (tTG) IgA level(Discharge Diagnosis) - 12/13/24 Major depressive disorder, recurrent, in partial remission(Discharge Diagnosis) - 12/13/24 Generalized anxiety disorder(Discharge Diagnosis) - 12/13/24 Attending Physician: Christel Ballard NP Encounter Type: Office Visit Allergies, Adverse Reactions, Alerts No Known Allergies Immunizations Given and Recorded Vaccine Date Status Refusal Reason influenza virus vaccine, inactivated 08/28/24 Delano rded influenza virus vaccine, inactivated 08/02/23 Delano rded SARS-CoV-2(COVID-19)mRNA-LNP vac([id number]) 08/28/24 Recorded SARS-CoV-2(COVID-19)mRNA-LNP vac([id number]) 08/02/23 Recorded Medications Fluoxetine = 40 mg, [...] For delivery to [facility] (IVF suite in [place]) on 04/06 for insertion at 1:30pm, # 1 each, 0 Refills, Maintenance, 03/18/24 11:53:00 PM EDT, [facility], Partial fill upon patient [...] each, 0 Refills, Maintenance, 11/21/24 1:26:00 [facility], [facility], Partial fill upon patient request if [...] Effective Dates Health Status Clinical Service Informant Right kidney mass Discharge Diagnosis 12/13/24 Pituitary adenoma Discharge Diagnosis 12/13/24 Severe obesity (BMI 35.0-39.9) with comorbidity Discharge Diagnosis 12/13/24 Elevated anti-tissue transglutaminase (tTG) IgA level Discharge Diagnosis 12/13/24 Major depressive disorder, recurrent, in partial remission Discharge Diagnosis 12/13/24 Generalized anxiety disorder Discharge Diagnosis 12/13/24 Vital Signs Most recent to oldest [Reference Range]: 1 Height 159.5 cm (12/13/24 8:28 AM) Oxygen Saturation [94-100 %] 99 % (12/13/24 8:28 AM) Pulse Rate [55-90 bpm] 88 bpm (12/13/24 8:28 AM) Blood Pressure [90-138/55-84 mm Hg] 110/ 73mm Hg (12/13/24 8:28 AM) Mode of Delivery (Oxygen) Room air (12/13/24 8:28 AM) Blood pressure sites Arm, right (12/13/24 8:28 AM) Social History Social History Type Response Smoking Status Never (less than 100 in lifetime) entered on: 10/01/24 Sex Female Sex Representation Female (finding) Note * Matthieu Kim: PERFORM Event Display: Patient Education/Instruction Authored Date: [id number] Ambulatory Adult Visit Summary [address] [address] Name: ASHLEY MATTSON : 2000?? Visit: 12/13/2024 08:17?? Ambulatory Visit Instructions ?? Your Care Team Primary Care Provider Elio RUBIN, Christel Subramanian? This Visit Provider Christel Ballard NP Your Diagnosis Right kidney mass Pituitary adenoma Severe obesity (BMI 35.0-39.9) with comorbidity Elevated anti-tissue transglutaminase (tTG) IgA level Major depressive disorder, recurrent, in partial remission Vitals Signs Pulse Rate: 88 bpm Height: 159.5 cm Systolic Blood Pressure: 110 mm Hg ?? Diastolic Blood Pressure: 73 mm Hg ?? Oxygen Saturation: 99 % ?? What to do next Scheduled Follow-Up Appointments Friday 10:00 AM EDT ?? With: Adrianna Simmons Where: [facility] [address] [place] [address]- Status: Pending Future Orders MRI Brain and Pituitary W+ W/O Contrast, Routine, Reason for Exam: Adenoma, No- No Pacemaker or Neurostimulator, Can Patient Stand Alone?, Once, *Est. 12/13/24 [facility] - Routine, Once, 03/11/24 11:06:00 EDT, [...] 11:08:00 EDT, Order for Today, [facility], Blood?? Medications The list below reflects the information in our records and provided by you today along with any changes made during this visit. Please continue your medications until treatment is completed or stopped by your provider. If this is different from the information you have or there are other questions,please contact the prescribing provider. What How Much When Instructions Unchanged Barium Sulfate (Readi-Cat 2 Smoothie Creamy Vanilla 2% oral suspension) See instructions use as directed by radiology ?? Unchanged Cetirizine (ZyrTEC 10 mg oral tablet) 1 tab(s) Oral Daily Unchanged Fluoxetine 40 Milligram Oral Unchanged HydrOXYzine (hydrOXYzine hydrochloride 10 mg oral tablet) 1 tab(s) Oral 3 times a day as needed for for anxiety Unchanged Levonorgestrel (levonorgestrel 52 mg intrauterine device) See instructions For delivery to [facility] (IVF suite in [place]) on for insertion at 1:30pm ?? Unchanged Propranolol (propranolol 20 mg oral tablet) 1 tab(s) Oral Twice a day Medications and Immunizations Administered Medications Given During [...] are strongly encouraged to quit. Please call [facility] Ensequence Link at [phone] or [phone] ([phone]) or log in to [email or web address] for referrals to smoking cessation programs. ?? The National Suicide Prevention Hotline is available 12/05 if you or someone you know needs to find a reason to keep living. By calling 4-886-235-[employer] (3264) you'll be connected to a skilled, trained counselor at a crisis center in your area. [facility] Ensequence Portal You can view and manage your care through the patient portal or by using a health care shanel of your choosing. [employer] is a website that allows you to securely view your medical information including your hospital discharge summary, office visit summaries, medications and follow-up visits. You can also request appointments, renew medications, and request access to your medical information using a health care shanel of your choosing, or just ask a question. You can enroll at [email or web address] or register during your next office visit. [facility], in keeping with [facility] guidance, no longer requires face masks [...] primary care provider, you may find a [facility] provider by calling [facility] Ensequence Link at [phone]. Patient Care team information Care Team Personnel Name: Elio RUBIN, Christel Subramanian Position: [facility] PCO Associate Professional Member Role: PCP Address: [address] [place] [address] Telecom: Care Team Related Persons Name: CAL MATTSON Insurance Providers Guarantor name: ASHLEY MATTSON Health Plan Information #: 1 Payer: BLUE BENEFIT BBA PPO Member Number: [id number] Policy Number: NA Group Number: [id number] Health Plan Information #: 2 Payer: [employer] Member Number: [id number] Policy Number: NA Group Number: [id number]
--- OUTSIDE RECORDS SUMMARY | 2024-12-31 10:40 | XMS_ITS | Continuity of Care Document ---
Author Organization [facility] Address [address] [place] [address]- Care Team Providers Care Consumer Safety Officer Name Role Phone Elio RUBIN, Christel Subramanian Primary Care Physician Encounter 12/20/24 - 12/27/24 [facility] [address], [address] [place] [address]- Attending Physician: Elio RUBIN, Christel Subramanian Admitting Physician: Christel Ballard NP Referring Physician: Christel Ballard NP Encounter Type: OutPatient One Time Allergies, Adverse Reactions, Alerts No Known Allergies Immunizations Given and Recorded Vaccine Date Status Refusal Reason influenza virus vaccine, inactivated 08/28/24 Delano rded influenza virus vaccine, inactivated 08/02/23 [place] rded SARS-CoV-2(COVID-19)mRNA-LNP vac([id number]) 08/28/24 Recorded SARS-CoV-2(COVID-19)mRNA-LNP vac([id number]) 08/02/23 Recorded Medications betamethasone topical dipropionate 0.05% cream 1 application, Topically, 2 times a day, for 7 days, apply thin amount to affected area, # 50 Gm, 0Refills, Acute 12/31/24 6:36:00 PM EDT, 12/24/24 6:36:00 PM EST, Cream, [id number], Partial fill upon patient request if the [...] For delivery to [facility] (IVF suite in [place]) on 04/06 for insertion at 1:30pm, # 1 each, 0 Refills, Maintenance, 03/18/24 11:53:00 PM EDT, [facility], Partial fill upon patient request if [...] obesity (BMI 35.0-39.9) with comorbidity Confirmed Active Results Radiology Reports * Exam Date Time Procedure Performing Provider Status 12/20/24 9:40 AM US Soft Tissue Abdomen Arleth Scott; Auth (Verified) Notes: (US Soft Tissue Abdomen) Reason For Exam: Palpable Mass RESULT: US Soft Tissue Abdomen US Soft Tissue Abdomen Reason: Palpable Mass COMPARISON: None. FINDINGS: High-resolution, linear array imaging of the superficial soft tissues of the left lateral abdomen was performed in the area of the patient's palpable finding. Partially encapsulated ovoid isoechoic mass within the subcutaneous fat overlying left lateral abdominal wall musculature linear with internal reflectors and no vascularity measuring 3.8 x 1.6 x 5.3 cm. No fluid collection. 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 No suspicious features. I have personally reviewed the images and I agree with this report. WSN: [id number] Ordering Physician: Christel Ballard Dictated By: Vinh Celeste DO Dictated Date/Time: 12/20/24 4:47 pm Reviewed By: Atul Gomez MD Signed By: Atul Gomez MD Signed Date/Time: 12/20/24 4:52 pm Transcribed By: EVELINA Transcribed Date/Time: 12/20/24 3:55 pm Social History Social History Type Response Smoking Status Never (less than 100 in lifetime) entered on: 10/01/24 Sex Female Sex Representation Female (finding) Patient Care team information Care Team Personnel Name: Christel Ballard NP Position: [facility] PCO Associate Professional Member Role: PCP Address: [address] [place] [id number] Telecom: Care Team Related Persons Name: CAL MATTSON Insurance Providers Guarantor name: ASHLEY MATTSON Health Plan Information #: 1 Payer: [employer]IT [employer] PPO Member Number: [id number] Policy Number: NA Group Number: [id number] Health Plan Information #: 2 Payer: [employer]IT [employer] PPO Member Number: [id number] Policy Number: NA Group Number: [id number]
--- OUTSIDE RECORDS SUMMARY | 2024-12-31 10:40 | XMS_ITS | Continuity of Care Document ---
Author Organization [facility] Address [address] [place] [address]- Care Team Providers Care Hydro Electric Station Operator Name Role Phone Elio RUBIN, Christel Subramanian Primary Care Physician Encounter [facility] Date(s): 11/19/24 - 12/19/24 [facility] [address] [place] [address]- Encounter Type: Triage Allergies, Adverse Reactions, Alerts No Known Allergies Immunizations Given and Recorded Vaccine Date Status Refusal Reason influenza virus vaccine, inactivated 08/28/24 Delano rded influenza virus vaccine, inactivated 08/02/23 [place] rded SARS-CoV-2(COVID-19)mRNA-LNP vac([id number]) 08/28/24 Recorded SARS-CoV-2(COVID-19)mRNA-LNP vac([id number]) 08/02/23 Recorded Medications Fluoxetine = 40 mg, [...] For delivery to [facility] (IVF suite in [place]) on 04/06 for insertion at 1:30pm, # 1 each, 0 Refills, Maintenance, 03/18/24 11:53:00 PM EDT, [facility], Partial fill upon patient request if [...] each, 0 Refills, Maintenance, 11/21/24 1:26:00 PME[address], [facility], Partial fill upon patient request if [...] team information Care Team Personnel Name: Elio RUBINChristel Position: [facility] PCO Associate Professional Member Role: PCP Address: [address] [place] [id number]- Telecom: Care Team Related Persons Name: CAL MATTSON Insurance Providers Guarantor name: ASHLEY MATTSON Health Plan Information #: 1 Payer: BLUE BENEFIT BBA PPO Member Number: NA Policy Number: NA Group Number: NA
--- OUTSIDE RECORDS SUMMARY | 2024-12-31 10:40 | XMS_ITS | Continuity of Care Document ---
Author Organization [facility] Address [address] [place] [address]- Care Team Providers Care Hog Cutter Name Role Phone Elio RUBIN, Christel Subramanian Primary Care Physician Encounter [facility] Date(s): 11/23/24 - 12/23/24 [facility] [address] [place] [address]- Encounter Type: Triage Allergies, Adverse Reactions, Alerts No Known Allergies Immunizations Given and Recorded Vaccine Date Status Refusal Reason influenza virus vaccine, inactivated 08/28/24 Delano rded influenza virus vaccine, inactivated 08/02/23 [place] rded SARS-CoV-2(COVID-19)mRNA-LNP vac([id number]) 08/28/24 Recorded SARS-CoV-2(COVID-19)mRNA-LNP vac([id number]) 08/02/23 Recorded Medications Fluoxetine = 40 mg, [...] For delivery to [facility] (IVF suite in [place]) on 04/06 for insertion at 1:30pm, # 1 each, 0 Refills, Maintenance, 03/18/24 11:53:00 PM EDT, [facility], Partial fill upon patient request if [...] PCO Associate Professional Member Role: PCP Address: [address] [place] [phone]- Telecom: Care Team Related Persons Name: CAL MATTSON Insurance Providers Guarantor name: ASHLEY MATTSON Health Plan Information #: 1 Payer: BLUE [employer]ENEFIT BBA PPO Member Number: NA Policy Number: NA Group Number: NA
[2025-01-12] VITALS (29 sets, daily range): BP systolic 106–124; BP diastolic 56–89; PULSE 64–91; RESP 10–20; TEMP 36.6–36.8; O2SAT 95–100; BMI 37.5
--- NOTE | ~2025-01-12 | IR_ITS ---
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 Procedures performed: 1. Ultrasound-guided catheterization of the right common femoral artery. 2. Catheterization of the right renal artery with selective angiography. 3. Catheterization of a total of nine third and fourth order branches of the right renal artery with selective angiography in each. 4. Embolization of three fourth order branches of the right renal artery supplying the angiomyolipoma. Follow-up arteriography after embolization. Physician: Jennie Turner MD Anesthesia: IV moderate sedation with intravenous fentanyl and versed was administered for 75 minutes with continuous physiologic monitoring under my direct supervision. 9 mL of 1% lidocaine was utilized for local anesthesia at the groin. Specimen: None Drain: None Estimated blood loss: Minimal Complications: None Procedure in detail: Informed and written consent was obtained and placed in the patient's chart. The patient was positioned supine on the angiography table with sterile preparation of both groins. Ultrasound of the right groin showed a patent right common femoral artery. 1% lidocaine was injected subcutaneously and extended to the artery under ultrasound guidance. A small incision was made in the skin with a #11 blade. Through the incision and under ultrasound guidance with permanent recordings and direct visualization of needle entry into the patent right common femoral artery, the right common femoral artery was catheterized in a retrograde fashion. Over a wire, SOS 2 catheter was advanced into the abdominal aorta and formed. This catheter was used to select the right renal artery where selective arteriography was performed. This showed that there were branches from the upper, mid, and lower pole renal arteries supplying the territory of the angiomyolipoma, but the angiomyolipoma itself was not well seen. We exchanged for a hockey-stick catheter, which was in turn used to select the second-order branches of the right renal artery with selective arteriography in each. From here, we used a microcatheter for superselective catheterization. In total, we interrogated a total of nine third or fourth order branches from the right renal artery with selective arteriography in each. It was difficult to visualize supplying branches to the angiomyolipoma, but from careful study of the CT, we knew where the tumor was located. We superselectively catheterized a total of three fourth order branches that were deemed to be a candidate arterial branches supplying the tumor. These were embolized to stasis using 100-300 um embospheres. In total, 3.5 mL of the beads admixed with contrast were injected to obtain hemostasis. Follow-up arteriography was performed in each branch following embolization to confirm stasis. We are careful to minimize collateral damage to the healthy kidney. Final arteriography performed through the hockey-stick catheter in the right main renal artery showed an excellent result with successful embolization of the tumor in the mid to lower pole of the right kidney. The catheter was removed from the groin and hemostasis obtained with manual pressure alone. 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 Electronically signed by: Chriss Turner MD 01/12/2025 05:21 PM EDT
[2025-01-12 14:34] LABS: UPreg QC Valid YES; Urine Pregnancy NEGATIVE (NEGATIVE)
[2025-01-12 15:13] LABS: MANUAL DIFF FLAG NO
[2025-01-12 15:15] LABS: Basophils Absolute Auto 0.1 X10*3/uL (0.0-0.2); Basophils Percent Auto 0.5 % (0-2); Eosinophils Absolute Auto 0.2 X10*3/uL (0.0-0.4); Eosinophils Percent Auto 1.4 % (0-4); Hematocrit 40.1 % (37.0-47.0); Hemoglobin 14.5 g/dl (12.0-16.0); Imm Gran Abs Auto 0.06 X10*3/uL (0.00-0.03); Imm Gran Pct Auto 0.5 % (0.0-0.4); Lymphocytes Percent Auto 23.1 % (20-40); Mean Corpuscular HGB Conc 36.2 g/dl (31.0-35.0); Mean Corpuscular Hemoglobin 30.1 pg (27.0-33.0); Mean Corpuscular Volume 83.2 fL (80.0-98.0); Monocytes Absolute Auto 0.7 X10*3/uL (0.1-1.2); Monocytes Percent Auto 5.4 % (2-11); Neutrophils Absolute Auto 9.1 x10*3/uL (2.0-8.3); Neutrophils Percent Auto 69.1 % (45-73); Platelet Count 301 X10*3/uL (160-400); Red Blood Count 4.82 X10*6/uL (4.20-5.50); Red Cell Distribution Width 12.8 % (11.0-16.0); White Blood Count 13.1 X10*3/uL (4.8-10.8)
[2025-01-12 15:20] LABS: Prothrombin Time 11.4 SEC (10.9-12.4)
[2025-01-12 15:28] LABS: Anion Gap 12 (12-20); Blood Urea Nitrogen 13 mg/dL (9-16); Carbon Dioxide 23 mmol/L (22-29); Chloride 109 mmol/L (96-108); Creatinine Clr Calc Pharmacy 150.2; Estimated Glomerular Filt Rate > 60; Glucose Random 72 mg/dL (60-115); Potassium 3.8 mmol/L (3.3-5.1); Sodium 140 mmol/L (135-145)
[2025-01-12] MEDS: Midazolam HCl 2 MG/2 ML VIAL 1 MG IVPUSH (15:42)
[2025-01-12] MEDS: fentaNYL citrate/PF 100 MCG/2 ML VIAL 50 MCG IVPUSH ×2 (15:42→16:51)
[2025-01-12] MEDS: Midazolam HCl 2 MG/2 ML VIAL 0.5 MG IVPUSH ×2 (16:17→16:38)
[2025-01-12] MEDS: fentaNYL citrate/PF 100 MCG/2 ML VIAL 25 MCG IVPUSH ×2 (16:17→16:38)
[2025-01-12] MEDS: oxyCODONE HCl Immed Release 5 MG TABLET PO (17:30)
== END 2025-01-12 18:22 | disposition home or self-care (01) ==
PROVIDERS: Radiology Diagnostic Radiology; Student in an Organized Health Care Education/Training Program; PCP Nurse Practitioner Family; Visit Provider Urology
DX: D30.01 Benign neoplasm of right kidney (principal); G43.909 Migraine, unspecified, not intractable, without status migrainosus; F32.A Depression, unspecified; F41.9 Anxiety disorder, unspecified; Z79.899 Other long term (current) drug therapy
CPT/HCPCS: 36415; 37243; 80048; 81025; 85025; 85610; 86850; 86900; 86901; 99152; 99153; C1769; C1887; J1644; J2250; J3010; Q9967

== ENCOUNTER → 2025-01-12 15:00 | Outpatient (BNV) | payer OTHER, SELFPAY | PROVIDERS: PCP Nurse Practitioner Family; Visit Provider Radiology Vascular & Interventional Radiology | DX: D17.71 Benign lipomatous neoplasm of kidney (principal) | CPT/HCPCS: 36253; 37243; 76937; 99152 ==

== ENCOUNTER 2025-06-28 09:54 | Emergency (ER) | payer OTHER, SELFPAY ==
--- NOTE | ~2025-06-28 | CT_ITS ---
CLINICAL HISTORY: r side flank pain history of angiolipoma.treated CT abdomen and pelvis without contrast Comparison: CT/OR/SR - CT ABDOMEN PELVIS WITHOUT IV CONTRAST - 11/24/24 12:27 EST Findings: No consolidation or effusion. There is a fatty mass emanating from the right kidney measuring 3.5 x 3.2 cm, series 3, image 36, Previously measuring 4.2 x 2.0. Measuring accuracy is difficult given that this is a fatty mass in his surrounding matrix of fat and margins are not well demarcated. Mass is roughly unchanged from prior. No hydronephrosis of either kidney. No retroperitoneal lymphadenopathy. No renal or ureteral stones. Spleen, adrenal glands, pancreas, gallbladder and liver unremarkable. No bowel obstruction, pneumoperitoneum, or pneumatosis. No retroperitoneal hematoma. Uterus and adnexa are unremarkable. No ascites. No acute fracture. 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 No retroperitoneal hemorrhage. This document has been electronically signed by: Ernesto May MD on 06/28/2025 19:35:38
--- NOTE | ~2025-06-28 | US_ITS ---
EXAMINATION: US KIDNEY RIGHT HISTORY: pain, hx of stones TECHNIQUE: Real-time grayscale ultrasound imaging of the right kidney was performed and images were reviewed. COMPARISON: Correlation is made with a CT of the abdomen without contrast dated 11/24/2024. FINDINGS: The right kidney measures 11.0 x 5.0 x 5.1 cm. Renal parenchymal echotexture and thickness are normal. There is a 4.0 x 3.3 x 4.1 cm echogenic mass in the interpolar region consistent with an angiomyolipoma as seen on CT. There is no hydronephrosis or renal calculi. 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 No evidence of nephrolithiasis. Electronically signed by: Xavi Porter MD 06/28/2025 12:07 PM EDT
[2025-06-28 10:24] VITALS: BP 129/58; PULSE 90; RESP 18; TEMP 36.6; O2SAT 99; BMI 36.6
--- NOTE | 2025-06-28 10:29 | ED.ABDPAIN ---
HPI - Abdominal Pain General Chief Complaint: Abdominal Pain Stated Complaint: Abd pain Time Seen by Provider: 06/28/25 16:49 Related Data Home Medications ?Medication ?Instructions ?Recorded ?Confirmed fluoxetine 40 mg capsule 40 mg PO DAILY 09/08/24 12/31/24 propranolol 20 mg tablet 20 mg PO BID 09/08/24 12/31/24 ascorbic acid (vitamin C) 1,000 mg 1 g PO BID 12/31/24 12/31/24 tablet (Vitamin C) cetirizine 10 mg tablet (Zyrtec) 10 mg PO DAILY PRN Allergic 12/31/24 12/31/24 Symptoms cetirizine 10 mg tablet (Zyrtec) 10 mg PO DAILY PRN Allergy Symptoms 12/31/24 12/31/24 cholecalciferol (vitamin D3) 50 50 mcg PO DAILY 12/31/24 12/31/24 mcg (2,000 unit) tablet (Vitamin D3) hydroxyzine HCl 10 mg PO DAILY 12/31/24 12/31/24 magnesium 200 mg tablet 200 mg PO DAILY 12/31/24 12/31/24 zinc gluconate 30 mg tablet 30 mg PO DAILY 12/31/24 12/31/24 Previous Rx's ?Medication ?Instructions ?Recorded cefuroxime axetil 500 mg tablet 500 mg PO BID #20 tabs 06/28/25 ondansetron 4 mg disintegrating 4 mg PO TID PRN nausea and 06/28/25 tablet vomiting 5 days #10 tabs Allergies Allergy/AdvReac Type Severity Reaction Status Date / Time banana Allergy Unknown Verified 06/28/25 10:26 mite-Dermatophagoides Allergy Unknown Verified 06/28/25 10:26 farmike [place] (dust mite - [place]) mold Allergy Unknown Verified 06/28/25 10:26 [facility] Past Medical History Medical History Migraine Depression Anxiety Surgical History Hx of tonsillectomy Social History Social History Patient Tobacco Use Status: Never used Tobacco Smoked in Last 30 Days: No Use of substances other than those prescribed or required for medical reasons: No Advance Directives: No Advance Directives Information Provided: No Physical Exam ED Vital Signs: Vital Signs - 24 hr 06/28/25 10:24 06/28/25 16:36 Temperature 97.9 F 97.4 F Pulse Rate 90 90 Respiratory Rate 18 18 Blood Pressure 129/58 L 109/78 Pulse Oximetry 99 99 Oxygen Delivery Method Room Air Room Air BMI result Body Mass Index 36.6 Course Course Course Narrative: This is an RME: Additional HPI, ROS, PE not included below will be deferred to primary provider. RME assessment and note performed by: Lolly Lopez PA-C This is a 24-year-old female, with a past medical history of a right renal angiomyolipoma requiring embolization in December, who presents emergency department with complaints of right flank pain which started approximately 10 days ago. Endorsing nausea, no vomiting. No urinary symptoms. Vital signs stable. She is well-appearing, appears to be under no acute distress. No right CVA tenderness on exam. Plan: Labs, UA, further ER evaluation needed. Medical Decision Making Lab Data 06/28/25 10:40 06/28/25 10:40 Labs: Lab Results 06/28/25 Range/Units 10:40 WBC 6.8 (4.8-10.8) X10*3/uL RBC 5.12 (4.20-5.50) X10*6/uL Hgb 15.3 (12.0-16.0) g/dl Hct 43.0 (37.0-47.0) % MCV 84.0 (80.0-98.0) fL MCH 29.9 (27.0-33.0) pg MCHC 35.6 H (31.0-35.0) g/dl RDW 12.7 (11.0-16.0) % Plt Count 288 (160-400) X10*3/uL MPV 8.9 L (9.4-12.3) fL Immature Gran % (Auto) 0.1 (0.0-0.4) % Neut % (Auto) 62.3 (45-73) % Lymph % (Auto) 30.5 (20-40) % Cascade % (Auto) 5.0 (2-11) % Eos % (Auto) 1.5 (0-4) % Baso % (Auto) 0.6 (0-2) % Lymph # (Auto) 2.1 (1.2-4.9) X10*3/uL Cascade # (Auto) 0.3 (0.1-1.2) X10*3/uL Eos # (Auto) 0.1 (0.0-0.4) X10*3/uL Baso # (Auto) 0.0 (0.0-0.2) X10*3/uL Abs Immat Gran (auto) 0.01 (0.00-0.03) X10*3/uL Absolute Neuts (auto) 4.2 (2.0-8.3) x10*3/uL Absolute Nucleated RBC 0.000 (0.0-0.012) X10*3/uL Nucleated RBC % (auto) 0.0 (0.0-0.2) /100WBC Sodium 141 (135-145) mmol/L Potassium 3.7 (3.3-5.1) mmol/L Chloride 109 H (96-108) mmol/L Carbon Dioxide 26 (22-29) mmol/L Anion Gap 10 L (12-20) BUN 11 (9-16) mg/dL Creatinine 0.73 (0.5-1.4) mg/dL Estim Creat Clear Calc 134.1 Estimated GFR > 60 Random Glucose 123 H (60-115) mg/dL Calcium 9.2 (8.4-10.2) mg/dL Magnesium 2.1 (1.6-2.6) mg/dL Total Bilirubin 1.1 H (0.0-1.0) mg/dL Direct Bilirubin 0.2 (0.0-0.5) mg/dL AST 29 (5-31) U/L ALT 36 H (0-31) U/L Alkaline Phosphatase 63 (39-117) U/L Total Protein 7.6 (6.5-8.0) g/dL Albumin 5.0 (3.5-5.0) g/dL Lipase 39 (8-78) U/L Beta HCG, Quant < 2 mIU/mL Urine Color Dark Yellow Urine Appearance Turbid Urine pH 7.0 (5.0-9.0) Ur Specific Dinosaur >= 1.030 H (1.005-1.025) Urine Protein 30 (1+) H (Neg-Trace) mg/dL Urine Glucose (UA) Negative (Negative) mg/dL Urine Ketones Trace (Negative) mg/dL Urine Blood Negative (Negative) Urine Nitrite Negative (Negative) Ur Leukocyte Esterase Moderate (2+) H (Negative) Urine RBC 0-2 (0-2) /HPF Urine WBC >50 H (0-5) /HPF Ur Squamous Epith Cells >20 (0-2) /HPF Urine Bacteria 4+ (None Seen) Hyaline Casts 0-2 (0-2) /LPF Medications Administered Discontinued Medications Generic Name Dose Route Start Last Admin Trade Name Freq PRN Reason Stop Dose Admin Ceftriaxone Sodium 1 gm 06/28/25 17:16 06/28/25 17:47 Ceftriaxone Sodium 1 Gm Vial IVPUSH 06/28/25 17:17 1 gm ONCE ONE Administration Discharge Plan Discharge Clinical Impression: Pyelonephritis Patient Disposition: Home, Self-Care Instructions: Kidney Infection (ED) Prescriptions: New cefuroxime axetil 500 mg tablet 500 mg PO BID Qty: 20 0RF ondansetron 4 mg tablet,disintegrating 4 mg PO TID PRN (Reason: nausea and vomiting) 5 Days Qty: 10 0RF No Action ascorbic acid (vitamin C) [Vitamin C] 1,000 mg Tablet 1 g PO BID cetirizine [Zyrtec] 10 mg Tablet 10 mg PO DAILY PRN (Reason: Allergic Symptoms) zinc gluconate 30 mg Tablet 30 mg PO DAILY magnesium 200 mg Tablet 200 mg PO DAILY cholecalciferol (vitamin D3) [Vitamin D3] 50 mcg (2,000 unit) Tablet 50 mcg PO DAILY hydroxyzine HCl 10 mg 10 mg PO DAILY cetirizine [Zyrtec] 10 mg Tablet 10 mg PO DAILY PRN (Reason: Allergy Symptoms) fluoxetine 40 mg capsule 40 mg PO DAILY propranolol 20 mg tablet 20 mg PO BID Referrals: Christel Ballard NP [Primary Care Provider, Internal Medicine] - 06/30/25 Print Language: Lao
[2025-06-28 10:49] LABS: MANUAL DIFF FLAG NO
[2025-06-28 10:52] LABS: Hematocrit 43.0 % (37.0-47.0); Hemoglobin 15.3 g/dl (12.0-16.0); Imm Gran Abs Auto 0.01 X10*3/uL (0.00-0.03); Imm Gran Pct Auto 0.1 % (0.0-0.4); Lymphocytes Absolute Auto 2.1 X10*3/uL (1.2-4.9); Mean Corpuscular HGB Conc 35.6 g/dl (31.0-35.0); Mean Corpuscular Hemoglobin 29.9 pg (27.0-33.0); Mean Corpuscular Volume 84.0 fL (80.0-98.0); NRBC Abs Auto 0.000 X10*3/uL (0.0-0.012); NRBC Pct Auto 0.0 /100WBC (0.0-0.2); Platelet Count 288 X10*3/uL (160-400); Red Blood Count 5.12 X10*6/uL (4.20-5.50); White Blood Count 6.8 X10*3/uL (4.8-10.8)
[2025-06-28 10:53] LABS: Appearance Urine Turbid; Glucose Urine UA Negative (Negative); PH 7.0 (5.0-9.0); Specific Gravity - Urine >= 1.030 (1.005-1.025); UMIC TRIGGER UACC YES
[2025-06-28 11:04] LABS: UACC Culture Trigger YES
[2025-06-28 11:08] LABS: Alanine Aminotransferase 36 U/L (0-31); Albumin Level 5.0 g/dL (3.5-5.0); Alkaline Phosphatase 63 U/L (39-117); Anion Gap 10 (12-20); Aspartate Amino Transferase 29 U/L (5-31); Blood Urea Nitrogen 11 mg/dL (9-16); Calcium 9.2 mg/dL (8.4-10.2); Carbon Dioxide 26 mmol/L (22-29); Chloride 109 mmol/L (96-108); Creatinine Clr Calc Pharmacy 134.1; Estimated Glomerular Filt Rate > 60; Lipase 39 U/L (8-78); Magnesium 2.1 mg/dL (1.6-2.6); Potassium 3.7 mmol/L (3.3-5.1); Sodium 141 mmol/L (135-145); Total Protein 7.6 g/dL (6.5-8.0)
[2025-06-28 16:36] VITALS: BP 109/78; PULSE 90; RESP 18; TEMP 36.3; O2SAT 99
--- NOTE | 2025-06-28 16:43 | PC.NURSE ---
Medical History Migraine Depression Anxiety
--- NOTE | 2025-06-28 17:08 | PC.NURSE ---
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 Presents with c/o right flank pain radiating to hher abdomen. Alert and oriented. Lungs clear bilat. Respirations even and non-labored. Abdomen soft, non-tender with positive bowel sounds. c/o right flank pain. No significant tenderness noted. Positive pedal pulses with no edema.
--- NOTE | 2025-06-28 17:11 | ED.ABDPAIN ---
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 Patient presents today with having flank pain for the last 10 days. There is no fever no chills. There is no nausea no vomiting. Patient is from home. No coughing or congestion or upper respiratory symptoms. No shortness of breath. She works here at [employer]. Patient does not think she is . Menstruation has been normal. No vomiting. No diaphoresis. Related Data Home Medications ?Medication ?Instructions ?Recorded ?Confirmed fluoxetine 40 mg capsule 40 mg PO DAILY 09/08/24 12/31/24 propranolol 20 mg tablet 20 mg PO BID 09/08/24 12/31/24 ascorbic acid (vitamin C) 1,000 mg 1 g PO BID 12/31/24 12/31/24 tablet (Vitamin C) cetirizine 10 mg tablet (Zyrtec) 10 mg PO DAILY PRN Allergic 12/31/24 12/31/24 Symptoms cetirizine 10 mg tablet (Zyrtec) 10 mg PO DAILY PRN Allergy Symptoms 12/31/24 12/31/24 cholecalciferol (vitamin D3) 50 50 mcg PO DAILY 12/31/24 12/31/24 mcg (2,000 unit) tablet (Vitamin D3) hydroxyzine HCl 10 mg PO DAILY 12/31/24 12/31/24 magnesium 200 mg tablet 200 mg PO DAILY 12/31/24 12/31/24 zinc gluconate 30 mg tablet 30 mg PO DAILY 12/31/24 12/31/24 Previous Rx's ?Medication ?Instructions ?Recorded cefuroxime axetil 500 mg tablet 500 mg PO BID #20 tabs 06/28/25 ondansetron 4 mg disintegrating 4 mg PO TID PRN nausea and 06/28/25 tablet vomiting 5 days #10 tabs Allergies Allergy/AdvReac Type Severity Reaction Status Date / Time banana Allergy Unknown Verified 06/28/25 10:26 mite-Dermatophagoides Allergy Unknown Verified 06/28/25 10:26 farinae, mike (dust mite - [place]) mold Allergy Unknown Verified 06/28/25 10:26 Review of Systems Review of Systems Positive right flank pain Yes all other systems are reviewed and are negative [facility] Past Medical History Attestation statement: The following information was validated with the patient. Medical History Migraine Depression Anxiety Surgical History Hx of tonsillectomy Social History Social History Patient Tobacco Use Status: Never used Tobacco Smoked in Last 30 Days: No Use of substances other than those prescribed or required for medical reasons: No Advance Directives: No Advance Directives Information Provided: No Physical Exam ED Exam Exam: Appearance: Alert. Oriented X3. No acute distress. Eyes: Pupils equal, round and reactive to light. ENT: Pharynx normal. Neck: Normal inspection. Neck supple. No lymph nodes noted. No crepitus CVS: Normal heart rate and rhythm. Pulses normal. Normal S1 and S2 Respiratory: No respiratory distress. Breath sounds normal. No Wheezing. No rales Abdomen: Soft and nontender. No rigidity. No distention. good BS x4 Skin: Skin warm and dry. Normal skin color. Normal skin turgor. Extremities: No lower extremity edema. Neurovascular intact to all extremities. No Lacerations. No Rash Neuro: Oriented X 3. No motor deficit. No sensory deficit. Moving all extermities. No slurred speech Vital Signs: Vital Signs - 24 hr 06/28/25 10:24 06/28/25 16:36 Temperature 97.9 F 97.4 F Pulse Rate 90 90 Respiratory Rate 18 18 Blood Pressure 129/58 L 109/78 Pulse Oximetry 99 99 Oxygen Delivery Method Room Air Room Air BMI result Body Mass Index 36.6 Medical Decision Making Medical Decision Making MDM Narrative: History of angiolipoma treated already. Presents today with having right-sided flank pain ongoing for the last 10 days. White count is normal. Ultrasound showed no evidence of hydro it showed the angiolipoma. Patient's urine however was grossly infected. She has no previous culture results here at [employer]. Appears well. IV fluid was given. We will give 1 dose of Rocephin for possible pyelonephritis Radiology's interpretation of the CT scan was grossly negative for any acute evidence of kidney stone. No obstruction. Patient likely has early pyelo. Well-appearing no distress. Patient's labs showed a normal white count. Showed a negative test. I reviewed patient's previous culture. Will start patient on cefuroxime on an outpatient basis a dose of Rocephin was given. Patient's ultrasound showed no evidence of stone. Currently in stable condition. Differential Diagnosis Differential Diagnoses: The differential diagnosis associated with the presentation includes Renal colic, UTI, pyelonephritis Admission/Observation Consideration of admission/observation: Escalation of care including admission/observation considered Lab Data MDM Lab Attestation statement: I reviewed the patient's lab results. 06/28/25 10:40 06/28/25 10:40 Labs: Lab Results 06/28/25 Range/Units 10:40 WBC 6.8 (4.8-10.8) X10*3/uL RBC 5.12 (4.20-5.50) X10*6/uL Hgb 15.3 (12.0-16.0) g/dl Hct 43.0 (37.0-47.0) % MCV 84.0 (80.0-98.0) fL MCH 29.9 (27.0-33.0) pg MCHC 35.6 H (31.0-35.0) g/dl RDW 12.7 (11.0-16.0) % Plt Count 288 (160-400) X10*3/uL MPV 8.9 L (9.4-12.3) fL Immature Gran % (Auto) 0.1 (0.0-0.4) % Neut % (Auto) 62.3 (45-73) % Lymph % (Auto) 30.5 (20-40) % [place] % (Auto) 5.0 (2-11) % Eos % (Auto) 1.5 (0-4) % Baso % (Auto) 0.6 (0-2) % Lymph # (Auto) 2.1 (1.2-4.9) X10*3/uL [place] # (Auto) 0.3 (0.1-1.2) X10*3/uL Eos # (Auto) 0.1 (0.0-0.4) X10*3/uL Baso # (Auto) 0.0 (0.0-0.2) X10*3/uL Abs Immat Gran (auto) 0.01 (0.00-0.03) X10*3/uL Absolute Neuts (auto) 4.2 (2.0-8.3) x10*3/uL Absolute Nucleated RBC 0.000 (0.0-0.012) X10*3/uL Nucleated RBC % (auto) 0.0 (0.0-0.2) /100WBC Sodium 141 (135-145) mmol/L Potassium 3.7 (3.3-5.1) mmol/L Chloride 109 H (96-108) mmol/L Carbon Dioxide 26 (22-29) mmol/L Anion Gap 10 L (12-20) BUN 11 (9-16) mg/dL Creatinine 0.73 (0.5-1.4) mg/dL Estim Creat Clear Calc 134.1 Estimated GFR > 60 Random Glucose 123 H (60-115) mg/dL Calcium 9.2 (8.4-10.2) mg/dL Magnesium 2.1 (1.6-2.6) mg/dL Total Bilirubin 1.1 H (0.0-1.0) mg/dL Direct Bilirubin 0.2 (0.0-0.5) mg/dL AST 29 (5-31) U/L ALT 36 H (0-31) U/L Alkaline Phosphatase 63 (39-117) U/L Total Protein 7.6 (6.5-8.0) g/dL Albumin 5.0 (3.5-5.0) g/dL Lipase 39 (8-78) U/L Beta HCG, Quant < 2 mIU/mL Urine Color Dark Yellow Urine Appearance Turbid Urine pH 7.0 (5.0-9.0) Ur Specific [place] >= 1.030 H (1.005-1.025) Urine Protein 30 (1+) H (Neg-Trace) mg/dL Urine Glucose (UA) Negative (Negative) mg/dL Urine Ketones Trace (Negative) mg/dL Urine Blood Negative (Negative) Urine Nitrite Negative (Negative) Ur Leukocyte Esterase Moderate (2+) H (Negative) Urine RBC 0-2 (0-2) /HPF Urine WBC >50 H (0-5) /HPF Ur Squamous Epith Cells >20 (0-2) /HPF Urine Bacteria 4+ (None Seen) Hyaline Casts 0-2 (0-2) /LPF Independent Interpretation I performed an independent interpretation of an: CT Scan (No obvious obstruction. Mass in the right kidney noted.) Radiology Impression Discussion of test interpretation with radiology: I have reviewed the radiologist's reading. External Record Review External record reviewed: Office record Medications Administered Discontinued Medications Generic Name Dose Route Start Last Admin Trade Name Freq PRN Reason Stop Dose Admin Ceftriaxone Sodium 1 gm 06/28/25 17:16 06/28/25 17:47 Ceftriaxone Sodium 1 Gm Vial IVPUSH 06/28/25 17:17 1 gm ONCE ONE Administration Discharge Plan Discharge Clinical Impression: Pyelonephritis Patient Disposition: Home, Self-Care Instructions: Kidney Infection (ED) Prescriptions: New cefuroxime axetil 500 mg tablet 500 mg PO BID Qty: 20 0RF ondansetron 4 mg tablet,disintegrating 4 mg PO TID PRN (Reason: nausea and vomiting) 5 Days Qty: 10 0RF No Action ascorbic acid (vitamin C) [Vitamin C] 1,000 mg Tablet 1 g PO BID cetirizine [Zyrtec] 10 mg Tablet 10 mg PO DAILY PRN (Reason: Allergic Symptoms) zinc gluconate 30 mg Tablet 30 mg PO DAILY magnesium 200 mg Tablet 200 mg PO DAILY cholecalciferol (vitamin D3) [Vitamin D3] 50 mcg (2,000 unit) Tablet 50 mcg PO DAILY hydroxyzine HCl 10 mg 10 mg PO DAILY cetirizine [Zyrtec] 10 mg Tablet 10 mg PO DAILY PRN (Reason: Allergy Symptoms) fluoxetine 40 mg capsule 40 mg PO DAILY propranolol 20 mg tablet 20 mg PO BID Referrals: Christel Ballard NP [Primary Care Provider, Internal Medicine] - 06/30/25 Print Language: Slovenian
--- OUTSIDE RECORDS SUMMARY | 2025-06-28 18:16 | XMS_ITS | Clinical Summary ---
Author Organization [facility] Address [address] [place] [id number] Phone Care Team Providers Care Obstetrical Nurse Name Role Phone Christel Ballard NP Primary Care Provider + Allergies No known active allergies Medications No known medications Active Problems No known active problems Social History Tobacco Use Types Packs/Day Years Used Date Smoking Tobacco: Never Assessed Education Answer Date Recorded Are you interested in more education? Not on petr e 10/23/2024 Are you concerned about learning? Not on file 10/23/2024 No 10/23/2024 No 10/23/2024 Digital Access Answer Date Recorded No 10/23/2024 No 10/23/2024 Reliable internet access at home? Not on file 10/23/2024 Device with a working camera? Not on file Comments Unknown Sex and Gender Information Value Date Recorded Sex Assigned at Not on file Legal Sex Female 2:18 PM EST Gender Identity Not on file Sexual Orientation Not on file Last Filed Vital Signs Vital Sign Reading Time Taken Comments Blood Pressure 99/69 10/23/2024 3:11 PM EST Pulse 60 10/23/2024 3:11 PM EST Temperature 36.5 C (97.7 F) 10/23/2024 3:11 PM EST Respiratory Rate 18 10/23/2024 3:11 PM EST Oxygen Saturation 100% 10/23/2024 3:11 PM EST Inhaled Oxygen Concentration - - Weight 99.8 kg (220 lb) 10/23/2024 3:11 PM EST Height 162.6 cm (5' 4 ) 10/23/2024 3:11 PM EST Body Mass Index 37.76 10/23/2024 3:11 PM EST Plan of Treatment Health Maintenance Due Date Last Done Comments Adult Td,Tdap Booster 2000 DEPRESSION SCREENING 2012 SMOKING Hx and SMOKELESS TOB ACCO SCREENING 2013 HPV VACCINES (1 - 3-dose series) 2015 CHLAMYDIA SCREENING 2016 HEPATITIS C SCREENING 2018 HIV ONE-TIME SCREENING (18-6 5 YEARS) 2018 PAP SMEAR 2021 INFLUENZA VACCINE (#1) 2025 COVID-19 VACCINE (2023-2 5 season) 2025 HEPATITIS A VACCINES Aged Out No long er eligible based on patient's age to complete this topic HIB VACCINES Aged Out No longer eligi ble based on patient's age to complete this topic MENINGOCOCCAL VACCINES (ACWY) Aged Out No longer eligible based on patient's age to complete this topic MENINGOCOCCAL VACCINES (B) Aged Out N o longer eligible based on patient's age to complete this topic PNEUMOCOCCAL VACCINES (0-49 years) Aged Out No longer eligible based on patient's age to complete this topic Medical Devices Not on file Insurance [place] [employer] [place] [employer] B[employer] [facility] [employer] Care Teams Obstetrical Nurse Relationship Specialty Start Date End Date Christel Ballard NP PCP - General Nurse Practitioner 10/23/24 Additional Source Comments The information contained in this document represents components of the legal health record. It is not the complete legal health record.[facility]
[2025-06-28 20:28] VITALS: BP 109/78; PULSE 90; RESP 18; TEMP 36.3; O2SAT 99
== END 2025-06-28 20:29 | disposition home or self-care (01) ==
PROVIDERS: Physician Assistant Medical; Emergency Provider Emergency Medicine Emergency Medical Services; PCP Nurse Practitioner Family
DX: N12 Tubulo-interstitial nephritis, not specified as acute or chronic (principal); N39.0 Urinary tract infection, site not specified; R10.2 Pelvic and perineal pain; Z79.899 Other long term (current) drug therapy
CPT/HCPCS: 36415; 74176; 76775; 80048; 80076; 81001; 83690; 83735; 84702; 85025; 87086; 96374; 99284; J0696

== ENCOUNTER → 2025-06-28 10:28 | Outpatient (BNV) | payer OTHER, SELFPAY | PROVIDERS: PCP Nurse Practitioner Family; Visit Provider Radiology Diagnostic Radiology | DX: D17.71 Benign lipomatous neoplasm of kidney (principal) | CPT/HCPCS: 74176; 76775 ==